=== PATIENT | female | born 1990 | race Caucasian/White ===

== ENCOUNTER 2020-04-16 17:51 | Outpatient (REF) | payer BC, SELFPAY ==
--- NOTE | 2020-04-16 16:45 | SKI_PTH ---
PATIENT: Marcia Crawley [id number] AGE/SX: 30/F ROOM: RE04/16/[address]: Diamond Stiles : 1990 BED: DIS: 04/16/2020 SPEC #: [id number] RECD: 04/17/20 12:29 STATUS: ILDA JOYNER #: [id number] SAWYER: 04/16/20 16:[address]: Diamond Stiles DEPT: Surgical Specimen RECD BY: Tracey Alejo Tissues: 1 - SKIN BIOPSY(SHAVE/PUNCH) 2 - SKIN BIOPSY(SHAVE/PUNCH) Procedures: IMMUNOPEROXIDASE STAIN SKIN LEVEL 4 Comments: [id number]
== END 2020-04-16 18:11 ==
LOC: NCHCN 17:51
PROVIDERS: PCP Nurse Practitioner Family; Visit Provider Nurse Practitioner Family
DX: D23.71 Other benign neoplasm of skin of right lower limb, including hip (principal); D22.62 Melanocytic nevi of left upper limb, including shoulder
CPT/HCPCS: 88305; 88361

== ENCOUNTER 2020-06-27 16:19 | Outpatient (REF) | payer BC, SELFPAY ==
--- NOTE | 2020-06-27 15:55 | PAPFT_PTH ---
PATIENT: Marcia Crawley LOC: [facility]#:[id number] AGE/SX: 30/F ROOM: RE06/27/[address]: Rhett Lee : 1990 BED: DIS: 06/27/2020 SPEC #: [id number] RECD: 06/28/20 10:37 STATUS: ILDA REQ #: [id number] SAWYER: 06/27/20 15:[address]: Rhett Lee [facility]PT[facility] Cytology RECD BY: Tracey Alejo Tissues: 1 - CX/ENDOCX FOR PAP SMEARS Procedures: PAP THIN PREP/[facility] Screening HPV DNA PROBE Comments: [id number] ([facility])
== END 2020-06-27 16:39 ==
LOC: NCHCN 16:19
PROVIDERS: PCP Nurse Practitioner Family; Visit Provider Family Medicine
DX: Z12.4 Encounter for screening for malignant neoplasm of cervix (principal); A63.0 Anogenital (venereal) warts; Z11.51 Encounter for screening for human papillomavirus (HPV)
CPT/HCPCS: 88142; 87624

== ENCOUNTER 2020-12-24 11:46 | Outpatient (REF) | payer BC, SELFPAY | END 2020-12-24 11:47 | disposition home or self-care (01) | LOC: NCHCN 11:46 | PROVIDERS: PCP Nurse Practitioner Family; Visit Provider Nurse Practitioner Family | DX: K62.5 Hemorrhage of anus and rectum (principal) | CPT/HCPCS: 83630 ==